=== PATIENT | male | born 1975 | race Caucasian/White ===

== ENCOUNTER 2017-03-18 04:53 | Emergency (ER) | payer OTHER ==
[~2017-03-18] VITALS: Ht 177.8 cm; Wt 97.5 kg
[2017-03-18] MEDS ORDERED: AMOXICILLIN500 M1 PO (05:21)
== END 2017-03-18 05:35 | disposition home or self-care (01) ==
LOC: ER 04:53
DX: J02.9 Acute pharyngitis, unspecified (principal); F17.210 Nicotine dependence, cigarettes, uncomplicated

== ENCOUNTER 2017-06-05 04:35 | Emergency (ER) | payer BC, OTHER ==
[~2017-06-05] VITALS: Ht 177.8 cm; Wt 95.3 kg
[~2017-06-05 04:35] MED LIST: AMOXICILLIN500 M1 PO
[2017-06-05 04:40] VITALS: BP 165/100
== END 2017-06-05 05:23 | disposition home or self-care (01) ==
LOC: ER 04:35
DX: J02.0 Streptococcal pharyngitis (principal); F17.210 Nicotine dependence, cigarettes, uncomplicated

== ENCOUNTER 2020-03-11 05:43 | Emergency (ER) | payer OTHER ==
[~2020-03-11] VITALS: Ht 177.8 cm; Wt 113.4 kg
[2020-03-11 07:27] VITALS: BP 157/128
[2020-03-11] MEDS ORDERED: FLEXERIL PO (07:32)
--- NOTE | 2020-03-11 10:21 | EKG ---
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
== END 2020-03-11 07:45 | disposition home or self-care (01) ==
LOC: ER 05:43
DX: R07.81 Pleurodynia (principal); F17.210 Nicotine dependence, cigarettes, uncomplicated